=== PATIENT | male | born 2000 | race Two or more races ===

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

== ENCOUNTER → 2021-01-01 | Outpatient (CLI) | payer OTHER ==
--- NOTE | 2021-01-01 09:06 | RAD ---
EXAM: Sonographic guided right breast biopsy; right breast biopsy clip placement. HISTORY: 20-year-old male presents for sonographic guided biopsy of a right breast mass demonstrated on a sonogram performed at an outside facility. TECHNIQUE: The risks of the procedure were discussed with the patient and written and verbal consent was obtained. A timeout was performed. Sonographic imaging of the right breast was performed and the lesion of concern at the 7:00 position 1 cm from the nipple was identified. The skin overlying this r egion was sterilely prepped, draped and infiltrated with 1 percent lidocaine. Multiple core samples w ere obtained through the lesion of concern with sonographic guidance. A biopsy clip was advanced into the lesion. Manual compression was maintained until hemostasis was achieved. A sterile bandage was p laced. The patient tolerated the procedure without difficulty and was discharged in stable condition. IMPRESSION: Successful sonographic guided biopsy of a mass within the 7:00 position of the right [address] st and biopsy clip placement. An addendum to this report will be submitted when pathology results are available. Electronically signed by: Cindy Benitez MD (01/01/2021 9:04 AM) [id number]
--- NOTE | 2021-01-02 15:08 | PATHOLOGY ---
[facility] Accession Number: [id number] . 01 Material submitted: . breast - RIGHT BREAST MASS 7 OCLOCK 1CM FROM NIPPLE 3.4CM. Modifiers: right, 7:00, 1CM FN . 01 Clinical history: . OBTAINED 08 FORMALIN 0820 . RIGHT BREAST MASS . 02 Diagnosis: Breast tissue, right breast mass 7:00 needle biopsies: - Keratinaceous material, few minute segments of squamous epithelium, and segments of fibrous tissue showing fibrosis, chronic inflammation, and foreign body granulomatous reaction, consistent with ruptured epidermal inclusion cyst. (JAYAM:geoff; 01/02/2021) MBDylon 01/02/2021 1222 Local . 02 Comment: There is no evidence of malignancy. (JAYAM:geoff; 01/02/2021) . 02 Electronically signed: . Spencer Moreland MD, Pathologist NPI- [id number] . 01 Gross description: . The specimen is received in formalin, labeled "Hinojoscontreras, Kit, right breast" additionally labeled 7:00 1 cm from nipple 3.4 cm received as multiple soft reid-yellow tissue cores measuring up to 0.6 cm x 0.1 cm. The specimen is entirely submitted A1-A2. The specimen is removed from the patient at 0820 hours and placed in formalin at 0820 hours on Thursday, January 01, 2021. The specimen is removed from formalin at 11:30pm. The specimen is in formalin for greater than 6 hours and less than 72 hours. ([facility]; 01/01/2021) BETH/BETH 01/02/2021 1221 Local . 02 Pathologist provided ICD-10: L90.5, L08.9 . 02 CPT . 103827 Specimen Comment: A courtesy copy of this report has been sent to [phone], [phone] Specimen Comment: 0850 Specimen Comment: Report sent to / DR WASHINGTON Performed at: 01 [facility] [address] [id number] MD Jose Antonio Fink MD Phone: [phone] Performed at: 02 [facility] [address] [place], [place] [id number] MD Spencer Moreland MD Phone: [phone]
--- NOTE | 2021-01-11 08:27 | RAD ---
EXAM: Sonographic guided right breast biopsy; right breast biopsy clip placement. HISTORY: 20-year-old male presents for sonographic guided biopsy of a right breast mass demonstrated on a sonogram performed at an outside facility. TECHNIQUE: The risks of the procedure were discussed with the patient and written and verbal consent was obtained. A timeout was performed. Sonographic imaging of the right breast was performed and the lesion of concern at the 7:00 position 1 cm from the nipple was identified. The skin overlying this region was sterilely prepped, draped and infiltrated with 1 percent lidocaine. Multiple core samples were obtained through the lesion of concern with sonographic guidance. A biopsy clip was advanced into the lesion. Manual compression was maintained until hemostasis was achieved. A sterile bandage was placed. The patient tolerated the procedure without difficulty and was discharged in stable condition. IMPRESSION: Successful sonographic guided biopsy of a mass within the 7:00 position of the right breast and biopsy clip placement. An addendum to this report will be submitted when pathology results are available. IDANIA
== END | disposition home or self-care (01) ==
LOC: US 11:18
PROVIDERS: ATTEND Registered Nurse
DX: N63.13 Unspecified lump in the right breast, lower outer quadrant (principal); R92.8 Other abnormal and inconclusive findings on diagnostic imaging of breast; F17.210 Nicotine dependence, cigarettes, uncomplicated; Z79.899 Other long term (current) drug therapy
CPT/HCPCS: 19083; 88304; A4648; 76942

== ENCOUNTER 2021-01-08 08:52 | Emergency (ER) | payer SELFPAY ==
[~2021-01-08] VITALS: Ht 162.6 cm; Wt 72.7 kg
--- NOTE | 2021-01-08 09:35 | RAD ---
INDICATION: Reason: breast biopsy,pt having pain rt nipple area since biopsy last week,burning / Spl. Instructions: / History: COMPARISON: None. FINDINGS: 2 view of chest obtained. No focal airspace consolidation. Cardiomediastinal contour unremarkable. No acute osseous abnormality. No pneumothorax is seen. IMPRESSION: * No focal airspace consolidation or edema. Electronically signed by: Seun Gamez MD (01/08/2021 9:33 AM) [id number]
[2021-01-08 09:57] VITALS: BP 116/72
[2021-01-08] MEDS ORDERED: LIDOCAINE (700MG/PATCH) PATCH. ONE (09:58)
--- NOTE | 2021-01-08 10:16 | PHYS DOC ---
Past Medical History Past Medical History: No Pertinent History Past Surgical History: Other Additional Past Surgical Histo: R BREAST BX Smoking Status: Current Some Day Smoker Alcohol Use: None Drug Use: None General Adult EDM: Chief Complaint: POST-OP PROBLEM HPI: HPI: 20-year-old male presents the ED with complaints of painful right nipple after patient had breast biopsy performed on January 01. Patient referred by his PCP to the individual who performed the biopsy. States ever since then pain feels as if something is stabbing his chest, can get so bad it makes him cry. Reports no associated rash after the biopsy. Size of his breast tissue has not changed-has not increased or decreased in size. No abnormal drainage from biopsy site. Has no past medical history, takes no routine medications. No h/o IVDU. Review of Systems: Review of Systems: Constitutional: Denies fever or chills. [] Eyes: Denies change in visual acuity. [] HENT: Denies nasal congestion or sore throat. [] Respiratory: Denies cough or shortness of breath. [] Cardiovascular: Denies hemoptysis, syncope or edema. [] GI: Denies nausea or vomiting Integument: Denies rash or blistering lesions Neurologic: Denies headache or neurologic deficit Lymphatic: Denies swollen glands. [] Psychiatric: Denies depression or anxiety. [] Heart Score: C/O Chest Pain: No Risk Factors: Risk Factors: DM, Current or recent (<one month) smoker, HTN, HLP, family history of CAD, obesity. Risk Scores: Score 0 - 3: 2.5% MACE over next 6 weeks - Discharge Home Score 4 - 6: 20.3% MACE over next 6 weeks - Admit for Clinical Observation Score 7 - 10: 72.7% MACE over next 6 weeks - Early Invasive Strategies Current Medications: Current Medications Medications (Trade) Dose Ordered Sig/Wilfredo Start Time Stop Time Status Last Admin Dose Admin Lidocaine (Lidoderm) 1 patch DAILY 01/09/21 09:00 Allergies: Allergies: Allergies Coded Allergies Type Severity Reaction Last Updated Verified No Known Drug Allergies 12/08/17 No Physical Exam: PE: Constitutional: Well developed, well nourished, no acute distress, non-toxic appearance. HENT: Normocephalic, atraumatic, Eyes: EOMI, conjunctiva normal, no discharge. Neck: Normal range of motion, supple, Cardiovascular: S1/2 present, regular rhythm, right nipple normal appearing, no inversion, gumball size hardened skin at 7 o'clock position of right areola Lungs & Thorax: Speaking in full sentences, bilateral equal chest rise, no tachypnea or increased work of breathing Abdomen: soft, no tenderness, Skin: Warm, dry, no erythema, no rash. [] Extremities: No tenderness, no cyanosis, Neurologic: Alert and oriented X 3, no focal deficits noted. [] Psychologic: Affect normal, judgement normal, mood normal. [] Current Patient Data: Vital Signs: Vital Signs Date Time Temp Pulse Resp B/P (MAP) Pulse Ox O2 Delivery O2 Flow Rate FiO2 01/08/21 08:57 98.0 68 16 134/83 (100) 97 Room Air 98.0 EKG: EKG: [] Radiology/Procedures: Radiology/Procedures: IMAGING REPORT Signed PATIENT: FARZANA SANDOVALACCOUNT: [id number] : 2000 LOCATION: ER AGE: 20 SEX: M EXAM STATUS: REG ER ORD. PHYSICIAN: ESTHER WILEY DO REASON: breast biopsy,pt having pain rt nipple area since biopsy last week,burning PROCEDURE: CHEST PA & LATERAL INDICATION: Reason: breast biopsy,pt having pain rt nipple area since biopsy last week,burning / Spl. Instructions: / History: COMPARISON: None. FINDINGS: 2 view of chest obtained. No focal airspace consolidation. Cardiomediastinal contour unremarkable. No acute osseous abnormality. No pneumothorax is seen. IMPRESSION: * No focal airspace consolidation or edema. Electronically signed by: Devika Murcia MD (01/08/2021 9:33 AM) [id number] DICTATED and SIGNED BY: DEVIKA MURCIA MD DATE: 01/08/21 [id number] 0 Course & Med Decision Making: Course & Med Decision Making Pertinent Labs and Imaging studies reviewed. (See chart for details) Encounter for exam after breast biopsy-no signs of infection. EMR was reviewed and pathology report results show no evidence of malignancy, consistent with ruptured epidermal inclusion cyst. Letter patch applied for pain-was informed to gently remove given areola. Also recommended topical analgesia [id number]. Patient has follow-up tomorrow with primary care physician. Pathology report printed and given to patient to take to his PCP. Will discharge home with strict ED return precautions were given for rash, severe pain or purulent drainage. Encouraged urgent outpatient follow-up with PMD as discussed. Life-threatening processes were considered but are low suspicion at this time, given history, physical exam and ED workup. Pt was educated on all prescription medications and adverse effects. All patient's questions were answered and pt was stable at time of discharge. Life/limb-threatening differential includes but is not limited to, erythema multiforme, arizmendi-janelle syndrome, toxic epidermal necrolysis, staphylococcal scalded skin syndrome, necrotizing fasciitis/myositis/cellulitis, purpura fulminans, heparin or warfarin induced skin necrosis, angioedema, anaphylaxis drug rash, disseminated intravascular coagulation, disseminated gonococcal disease, vasculitis, septicemia, petechial disorder or coagulopathy, viral exanthem, Kawasaki's disease or life-threatening burn requiring burn center management or escharotomy. I spoken with the patient and her caregivers. I explained the patient's condition, diagnoses and treatment plan based on the information available to me at this time. I have answered the patient and her caregiver's questions and addressed any concerns. The patient and her caregivers have a good under standing of patient's diagnosis, condition and treatment plan as can be expected at this point. Vital signs have been stable. Patient's condition is stable and appropriate for discharge from the emergency department. Patient will pursue further outpatient evaluation with primary care physician or other designated or consulting physician as outlined in the discharge instructions. The patient and/or caregivers are agreeable to this plan of care and follow-up instructions have been explained in detail. The patient and/or caregivers have received these instructions in written form and have expressed an understanding of the discharge instructions. The patient and/or caregivers are aware that any significant change of condition or worsening of symptoms shou ld prompt immediate return to this or the closest emergency department or call to 911. Roc Disclaimer: Roc Disclaimer: This electronic medical record was generated, in whole or in part, using a voice recognition dictation system. Departure Departure Impression: Primary Impression: S/P skin biopsy Additional Impressions: Post-op pain Ruptured epidermal cyst Referrals: KEATON WASHINGTON APRN (PCP) Patient Instructions: Epidermal Cyst Additional Instructions: REFERRAL FOR RUPTURED CYST VIA: Follow up as needed with plastic surgery: Amanda Donald MD Plastic & Reconstructive Surgery [facility] Plastic Surgery, [address] [place] [address] [place] [address] [place], [place] [id number] EMERGENCY DEPARTMENT GENERAL DISCHARGE INSTRUCTIONS Thank you for coming to [facility] Emergency Department (ED) today and trusting us with you care. We trust that you had a positive experience in our Emergency Department. If you wish to speak to the department management, you may call the Director at [phone]. YOUR FOLLOW UP INSTRUCTIONS ARE FOLLOWS: 1. Do you have a private Doctor? If you do not have a private doctor, please ask for a resource list of physicians or clinics that may be able to assist you with follow up care. 2. The Emergency Physicain has interpreted your x-rays. The X-Ray specialist will also review them. If there is a change in the findings, you will be notified in 48 hours when at all possible. 3. A lab test or culture has been done, your results will be reviewed and you will be notified if you need a change in treatment. ADDITIONAL INSTRUCTIONS AND INFORMATION: 1. Your care today has been supervised by a physician who is specially trained in emergency care. Many problems require more than one evaluation for a complete diagnosis and treatment. We recommend that you schedule your follow up appointment as recommended to ensure complete treatment of you illness or injury. If you are unable to obtain follow up care and continue to have a problem, or if your condition worsens, we recommend that you return to the ED. 2. We are not able to safely determine your condition over the phone nor are we able to give sound medical advice over the phone. For these safety reasons, if you call for medical advice we will ask you to come to the ED for further evaluation. 3. If you have any questions regarding these discharge instructions please call the ED at [phone]. SAFETY INFORMATION: In the interest of safety, wellness, and injury prevention; we encourage you to wear your sealbelt, if you smoke; quite smoking, and we encourage family to use a protective helmet for bicycling and other sporting events that present an increased risk for head injury. IF YOUR SYMPTOMS WORSEN OR NEW SYMPTOMS DEVELOP, OR YOU HAVE CONCERNS ABOUT YOUR CONDITION; OR IF YOUR CONDITION WORSENS WHILE YOU ARE WAITING FOR YOUR FOLLOW UP APPOINTMEN T; EITHER CONTACT YOUR PRIMARY CARE DOCTOR, THE PHYSICIAN WHOSE NAME AND NUMBER YOU WERE GIVEN, OR RETURN TO THE ED IMMEDIATELY. [facility] DO Jan 08, 2021 10:16
[2021-01-09] MEDS ORDERED: LIDOCAINE (700MG/PATCH) PATCH. TD SCH (09:00)
== END 2021-01-08 10:24 | disposition home or self-care (01) ==
LOC: ER 08:52
DX: G89.18 Other acute postprocedural pain (principal); L72.8 Other follicular cysts of the skin and subcutaneous tissue; Z98.890 Other specified postprocedural states; F17.200 Nicotine dependence, unspecified, uncomplicated
CPT/HCPCS: 71046; 99283

== ENCOUNTER 2021-09-02 18:03 | Emergency (ER) | payer OTHER ==
[~2021-09-02] VITALS: Ht 165.1 cm; Wt 80.9 kg
[2021-09-02 18:14] VITALS: BP 145/95
[2021-09-02] MEDS ORDERED: NAPR-514 PO (18:41)
--- NOTE | 2021-09-02 18:41 | PHYS DOC ---
Past Medical History Past Medical History: No Pertinent History Past Surgical History: Other Additional Past Surgical Histo: R BREAST BX Smoking Status: Current Some Day Smoker Alcohol Use: None Drug Use: None General Adult EDM: Chief Complaint: SHOULDER INJURY HPI: HPI: Patient is a 21 year old male with no significant medical history presented to the ED today complaining of mild intermittent sharp right shoulder pain, symptoms have been going on since April 2021 after work-related injury. Patient states he was seen at [facility] ([facility]), had negative x- rays and was sent to follow-up with [facility] doctor. He states "they are not helping me". He states he has continued to have pain especially when doing heavy lifting. 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 He states he has been working as he is supposed to though his boss states he might fire him for complaining shoulder pain. Patient denies any new injuries. Denies any numbness or tingling to the right upper extremity. He states he has an appointment with his [facility] doctor tomorrow Review of Systems: Review of Systems: Constitutional: Denies fever or chills. [] Musculoskeletal: Reports right shoulder pain Integument: Denies rash. [] Neurologic: Denies headache, focal weakness or sensory changes. [] Psychiatric: Denies depression or anxiety. [] Heart Score: C/O Chest Pain: N/A Risk Factors: Risk Factors: DM, Current or recent (<one month) smoker, HTN, HLP, family history of CAD, obesity. Risk Scores: Score 0 - 3: 2.5% MACE over next 6 weeks - Discharge Home Score 4 - 6: 20.3% MACE over next 6 weeks - Admit for Clinical Observation Score 7 - 10: 72.7% MACE over next 6 weeks - Early Invasive Strategies Allergies: Allergies: Allergies Coded Allergies Type Severity Reaction Last Updated Verified No Known Drug Allergies 12/08/17 No Physical Exam: PE: Constitutional: Well developed, well nourished, no acute distress, non-toxic appearance. [] Skin: Warm, dry, no erythema, no rash. [] Back: No tenderness, no CVA tenderness. [] Extremities: Well muscled man. Right shoulder with no obvious deformity. No tenderness on exam, full range of motion to the right shoulder. +2 right radial pulse. Cap refill less than 2 seconds of right fingers. Neurologic: Alert and oriented X 3, normal motor function, normal sensory function, no focal deficits noted. [] Psychologic: Affect normal, judgement normal, mood normal. [] EKG: EKG: [] Radiology/Procedures: Radiology/Procedures: [] Course & Med Decision Making: Course & Med Decision Making Pertinent Labs and Imaging studies reviewed. (See chart for details) This is a 21-year-old male patient presented to the ED today with right shoulder pain, symptoms began in April 2021 after work-related injury. He had x- rays done which were negative. He follows up with [facility] but he feels they are not doing anything for him. He has an appointment tomorrow with [facility] doctor. Spoke to patient at length. Requested he follows up tomorrow as scheduled. Provided return precautions. Also recommended an orthopedic doctor if he wants to see one. Dragon Disclaimer: Dragyolanda Disclaimer: This electronic medical record was generated, in whole or in part, using a voice recognition dictation system. Departure Departure Impression: Primary Impression: Right shoulder pain Qualified Codes: M25.511 - Pain in right shoulder; G89.29 - Other chronic pain Disposition: HOME / SELF CARE / HOMELESS Condition: STABLE Referrals: KEATON WASHINGTON APRN (PCP) FER WALKER MD Follow-up with [facility] doctor or the provided orthopedic doctor Patient Instructions: Shoulder Pain, [id number] Additional Instructions: You were seen for right shoulder pain, [facility]. Consider icing the right shoulder and elevating the right upper extremity. Please consider taking Tylenol or Motrin as needed for your pain. You can follow-up with orthopedic doctor if you want to Scripts Naproxen (NAPROXEN) 500 Mg Tablet 1 TAB PO BID for pain, #14 TAB 0 Refills Prov: RUBIN HOLMAN APRN 09/02/21 RUBIN HOLMAN APRN Sep 02, 2021 18:41
== END 2021-09-02 18:44 | disposition home or self-care (01) ==
LOC: ER 18:03
DX: M25.511 Pain in right shoulder (principal); G89.29 Other chronic pain; F17.200 Nicotine dependence, unspecified, uncomplicated
CPT/HCPCS: 99282

== ENCOUNTER 2021-09-14 21:10 | Emergency (ER) | payer OTHER ==
[~2021-09-14] VITALS: Ht 165.1 cm; Wt 84.0 kg
[~2021-09-14 21:10] MED LIST: NAPR-514 PO
[2021-09-14] MEDS ORDERED: LIDOCAINE 1% Multi-Dose 20 ML VIAL. INJ ONE (22:15)
[2021-09-14 23:10] VITALS: BP 131/75
[2021-09-14] MEDS ORDERED: SULF1TAB24 PO (23:11)
[2021-09-14] MEDS ORDERED: HYDROcodone/APAP 5/325MG 1 TAB TABLET PO ONE (23:15)
[2021-09-14] MEDS ORDERED: HYDR-2761 PO (23:15)
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
== END 2021-09-15 00:12 | disposition home or self-care (01) ==
LOC: ER 22:04
DX: L05.01 Pilonidal cyst with abscess (principal)
CPT/HCPCS: 10080; 99285; J3490